=== PATIENT | female | born 1975 | race Caucasian/White ===

== ENCOUNTER → 2020-12-23 | Outpatient (CLI) | payer OTHER ==
[~2020-12-23] MED LIST: B12; B12INJ IM; FLEXERIL PO; HYDROCODON-ACE1 EACH PO; IBUPROFEN 600600 M1 PO; IBUPROFEN 800800 M1 PO; IBUPROFEN 800800 MG PO; MEDROL DOSPAK21 TA1 PO; NORCO 5-325 TA1 EACH PO; PYRIDIUM100 MG PO; SUBOXONE 8 MG-1 EAC3 SL; TIROSINT50 MCG PO
== END ==
LOC: M.RAD 14:17
PROVIDERS: ATTEND Student in an Organized Health Care Education/Training Program
DX: Z12.31 Encounter for screening mammogram for malignant neoplasm of breast (principal); N63.21 Unspecified lump in the left breast, upper outer quadrant; N64.89 Other specified disorders of breast

== ENCOUNTER → 2020-12-27 | Outpatient (CLI) | payer OTHER | LOC: M.ULTRA 09:18 | PROVIDERS: ATTEND Student in an Organized Health Care Education/Training Program | DX: R92.2 Inconclusive mammogram (principal) ==